=== PATIENT | female | born 1960 | race Caucasian/White ===

== ENCOUNTER 2020-10-12 13:30 | Emergency (ER) | payer BC ==
[~2020-10-12 13:30] MED LIST: NAPROSYN500 MG PO
[2020-10-12] MEDS ORDERED: NAPROSYN500 MG PO (14:56)
== END 2020-10-12 15:02 | disposition home or self-care (01) ==
LOC: ER1 13:30
DX: S93.401A Sprain of unspecified ligament of right ankle, initial encounter (principal); S93.601A Unspecified sprain of right foot, initial encounter; E10.9 Type 1 diabetes mellitus without complications; X58.XXXA Exposure to other specified factors, initial encounter
CPT/HCPCS: 73600; 73630; 99283